=== PATIENT | female | born 1990 ===

== ENCOUNTER 2021-05-02 09:41 | Emergency (ER) | payer SELFPAY ==
--- NOTE | 2021-05-02 10:01 | EDM.PDOC ---
ED HPI GENERAL MEDICAL PROBLEM - General Chief Complaint: Abdominal Pain Stated Complaint: LOWER ABDOMINAL PAIN Time Seen by Provider: 05/02/21 10:01 Source of Information: Reports: Patient, RN, RN Notes Reviewed History Limitations: Reports: No Limitations - History of Present Illness INITIAL COMMENTS - FREE TEXT/NARRATIVE: Pt arrives to ER by ambulance with c/o onset this morning of lower abdominal pain with nausea and vomiting. Denies fever, chills, cough, diarrhea, flank pain or any other symptoms. Pt states she had similar pain once in the past and was found to have a UTI even though she did not have urinary symptoms. Onset: Today Duration: Constant Location: Reports: Abdomen Quality: Reports: Ache Severity: Moderate Improves with: Reports: None Worsens with: Reports: None Associated Symptoms: Reports: No Other Symptoms Middle Abdomen Pain Score (Numeric/FACES): 8 - Related Data Allergies Allergy/AdvReac Type Severity Reaction Status Date / Time codeine Allergy Mild Abdominal Verified 05/02/21 10:11 Cramps pineapple Allergy Cannot Verified 05/02/21 10:11 Remember Home Meds: Home Meds Brexpiprazole [Rexulti] 2 mg PO ASDIRECTED 05/02/21 [History] Desvenlafaxine Succinate [Pristiq ER] 25 mg PO ASDIRECTED 05/02/21 [History] Dextroamphetamine/Amphetamine [Adderall] 30 mg PO DAILY 05/02/21 [History] Fexofenadine/Pseudoephedrine [Ena-D 24 Hour Tablet] 1 tab PO ASDIRECTED 05/02/21 [History] Montelukast [Singulair] 10 mg PO DAILY 05/02/21 [History] atorvaSTATin [Lipitor] 20 mg PO BEDTIME 05/02/21 [History] lamoTRIgine [Lamictal] 200 mg PO DAILY 05/02/21 [History] norethindrone-e.estradioL-iron [Junel Fe 1 MG-20 MCG] 1 each PO ASDIRECTED 05/02/21 [History] Past Medical History Respiratory History: Reports: Asthma Psychiatric History: Reports: Bipolar Endocrine/Metabolic History: Reports: Obesity/BMI 30+ Social & Family History - Family History Family Medical History: No Pertinent Family History - Living Situation & Occupation Living situation: Reports: Single ED ROS GENERAL - Review of Systems Review Of Systems: Comprehensive ROS is negative, except as noted in HPI. ED EXAM, GI/ABD - Physical Exam Exam: See Below Exam Limited By: No Limitations General Appearance: Alert, WD/WN, No Apparent Distress, Obese Eyes: Bilateral: Normal Appearance (No scleral icterus) Nose: Normal Inspection Throat/Mouth: Normal Voice, No Airway Compromise Head: Atraumatic, Normocephalic Neck: Normal Inspection Respiratory/Chest: No Respiratory Distress, Lungs Clear, Normal Breath Sounds, No Accessory Muscle Use, Chest Non-Tender Cardiovascular: Regular Rate, Rhythm, No Edema GI/Abdominal Exam: Normal Bowel Sounds, Soft, No Distention, Tender (periumbilical to suprapubic region). No: Guarding, Rigid, Rebound Back Exam: Normal Inspection. No: CVA Tenderness (L), CVA Tenderness (R) Extremities: Normal Inspection Neurological: Alert, Oriented, No Motor/Sensory Deficits Psychiatric: Normal Mood Skin Exam: Warm, Dry, Intact, Normal Color, No Rash Course - Vital Signs Last Recorded V/S: Last Vital Signs Temp 98 F 05/02/21 10:05 Pulse 96 05/02/21 10:05 Resp 14 05/02/21 10:05 BP 129/90 05/02/21 10:05 Pulse Ox 97 05/02/21 10:05 - Orders/Labs/Meds Orders: Active Orders 24 hr Category Date Time Status Peripheral IV Care [RC] . DIRECTED Care 05/02/21 10:25 Active CULTURE URINE [RM] Stat Lab 05/02/21 09:50 Received Sodium Chloride 0.9% [Saline Flush] Med 05/02/21 10:25 Active 10 ml FLUSH ASDIRECTED PRN metroNIDAZOLE/Normal Saline [Flagyl in NS 500 MG/100 ML Med 05/02/21 11:22 Active ] 500 mg Premix Bag 100 bag IV ONETIME Peripheral IV Insertion Adult [OM.PC] Stat Oth 05/02/21 10:24 Ordered Medication Orders Metronidazole 500 mg/ Premix 100 mls @ 100 mls/hr IV ONETIME ONE Stop: 05/02/21 12:21 Last Admin: 05/02/21 11:33 Dose: 100 mls/hr Documented by: KIMBERLY Sodium Chloride (Sodium Chloride 0.9% 10 Ml Syringe) 10 ml FLUSH ASDIRECTED PRN PRN Reason: Keep Vein Open Last Admin: 05/02/21 10:49 Dose: 10 ml Documented by: KIMBERLY Labs: Laboratory Tests 05/02/21 05/02/21 05/02/21 Range/Units 09:50 09:50 10:36 WBC 6.5 (5.0-10.0) 10^3/uL RBC 3.67 L (4.2-5.4) 10^6/uL Hgb 12.5 (12.0-16.0) g/dL Hct 36.7 L (37.0-47.0) % MCV 100.0 (80-100) fL MCH 34.1 H (27.0-34.0) pg MCHC 34.1 (33.0-35.0) g/dL Plt Count 293 (150-450) 10^3/uL Neut % (Auto) 43.1 (42.2-75.2) % Lymph % (Auto) 45.2 (20.5-50.1) % [place] % (Auto) 8.8 H (2-8) % Eos % (Auto) 2.6 (1.0-3.0) % Baso % (Auto) 0.3 (0.0-1.0) % Sodium (136-145) mmol/L Potassium (3.5-5.1) mmol/L Chloride (98-107) mmol/L Carbon Dioxide (21-32) mmol/L Anion Gap (7-13) mEq/L BUN (7-18) mg/dL Creatinine (0.55-1.02) mg/dL Est Cr Clr Drug Dosing mL/min Estimated GFR (MDRD) BUN/Creatinine Ratio (No establ ref range) Glucose (70-99) mg/dL Calcium (8.5-10.1) mg/dL Total Bilirubin (0.2-1.0) mg/dL AST (15-37) U/L ALT (14-59) U/L Alkaline Phosphatase (46-116) U/L Total Protein (6.4-8.2) g/dL Albumin (3.4-5.0) g/dL Globulin Albumin/Globulin Ratio Amylase (25-115) U/L Lipase (73-393) U/L Urine Color Yellow (YELLOW) Urine Appearance Slightly cloudy (CLEAR) Urine pH 6.0 (5.0-9.0) Ur Specific [place] >= 1.030 (1.005-1.030) Urine Protein Negative (NEGATIVE) Urine Glucose (UA) Negative (NEGATIVE) Urine Ketones Negative (NEGATIVE) Urine Occult Blood Negative (NEGATIVE) Urine Nitrite Negative (NEGATIVE) Urine Bilirubin Negative (NEGATIVE) Urine Urobilinogen 0.2 (0.2-1.0) mg/dL Ur Leukocyte Esterase Trace H (NEGATIVE) Urine RBC 0-5 (0-5) /HPF Urine WBC 5-10 H (0-5/HPF) /HPF Ur Epithelial Cells Many H (NOT SEEN) /HPF Amorphous Sediment Not seen (NOT SEEN) /HPF Urine Bacteria Few (0-FEW/HPF) /HPF Urine Mucus Few H (NOT SEEN) /LPF Urine HCG, Qual Negative 05/02/21 Range/Units 10:36 WBC (5.0-10.0) 10^3/uL RBC (4.2-5.4) 10^6/uL Hgb (12.0-16.0) g/dL Hct (37.0-47.0) % MCV (80-100) fL MCH (27.0-34.0) pg MCHC (33.0-35.0) g/dL Plt Count (150-450) 10^3/uL Neut % (Auto) (42.2-75.2) % Lymph % (Auto) (20.5-50.1) % [place] % (Auto) (2-8) % Eos % (Auto) (1.0-3.0) % Baso % (Auto) (0.0-1.0) % Sodium 138 (136-145) mmol/L Potassium 3.5 (3.5-5.1) mmol/L Chloride 100 (98-107) mmol/L Carbon Dioxide 24 (21-32) mmol/L Anion Gap 17.5 H (7-13) mEq/L BUN 4 L (7-18) mg/dL Creatinine 0.83 (0.55-1.02) mg/dL Est Cr Clr Drug Dosing 91.94 mL/min Estimated GFR (MDRD) > 60 BUN/Creatinine Ratio 4.8 (No establ ref range) Glucose 92 (70-99) mg/dL Calcium 8.7 (8.5-10.1) mg/dL Total Bilirubin 0.5 (0.2-1.0) mg/dL AST 41 H (15-37) U/L ALT 45 (14-59) U/L Alkaline Phosphatase 63 (46-116) U/L Total Protein 7.4 (6.4-8.2) g/dL Albumin 3.4 (3.4-5.0) g/dL Globulin 4.0 Albumin/Globulin Ratio 0.9 Amylase 23 L (25-115) U/L Lipase 64 L (73-393) U/L Urine Color (YELLOW) Urine Appearance (CLEAR) Urine pH (5.0-9.0) Ur Specific [place] (1.005-1.030) Urine Protein (NEGATIVE) Urine Glucose (UA) (NEGATIVE) Urine Ketones (NEGATIVE) Urine Occult Blood (NEGATIVE) Urine Nitrite (NEGATIVE) Urine Bilirubin (NEGATIVE) Urine Urobilinogen (0.2-1.0) mg/dL Ur Leukocyte Esterase (NEGATIVE) Urine RBC (0-5) /HPF Urine WBC (0-5/HPF) /HPF Ur Epithelial Cells (NOT SEEN) /HPF Amorphous Sediment (NOT SEEN) /HPF Urine Bacteria (0-FEW/HPF) /HPF Urine Mucus (NOT SEEN) /LPF Urine HCG, Qual Meds: Medications Generic Name Dose Route Start Last Admin Trade Name Freq PRN Reason Stop Dose Admin Metronidazole 500 mg/ Premix 100 mls @ 100 mls/hr 05/02/21 11:22 05/02/21 11:33 IV 05/02/21 12:21 100 mls/hr ONETIME ONE Administration Sodium Chloride 10 ml 05/02/21 10:05/02/21 10:49 Sodium Chloride 0.9% 10 Ml Syringe FLUSH 10 ml ASDIRECTED PRN Administration Keep Vein Open Discontinued Medications Generic Name Dose Route Start Last Admin Trade Name Freq PRN Reason Stop Dose Admin Sodium Chloride 1,000 mls @ 999 mls/hr 05/02/21 10:25 05/02/21 10:47 Normal Saline IV 05/02/21 11:25 999 mls/hr .BOLUS ONE Administration Ondansetron HCl 4 mg 05/02/21 10:25 05/02/21 10:48 Ondansetron 4 Mg/2 Ml Sdv IV 05/02/21 10:26 4 mg ONETIME ONE Administration Ondansetron HCl 4 mg 05/02/21 11:23 05/02/21 11:33 Ondansetron 4 Mg/2 Ml Sdv IV 05/02/21 11:24 4 mg ONETIME ONE Administration Departure - Departure Time of Disposition: 12:17 Disposition: Home, Self-Care 01 Condition: Good Clinical Impression: Bacterial vaginosis, Dehydration Abdominal pain Qualifiers: Abdominal location: lower abdomen, unspecified Qualified Code(s): R10.30 - Lower abdominal pain, unspecified - Discharge Information *PRESCRIPTION DRUG MONITORING PROGRAM REVIEWED*: Not Applicable *COPY OF PRESCRIPTION DRUG MONITORING REPORT IN PATIENT OBI: Not Applicable Instructions: Bacterial Vaginosis, [id number], Abdominal Pain, Adult, [id number] Forms: ED Department Discharge Additional Instructions: Rx: Flagyl (Metronidazole) 500mg *Do not drink alcohol while taking this medication. Rx: Zofran 4mg Follow up in clinic as scheduled. Ask your doctor to recheck your urine at your clinic visit. If abdominal pain with nausea returns, ask your doctor about further gallbladder evaluation. Sepsis Event Note (ED) - Focused Exam Vital Signs: Vital Signs Temp Pulse Resp BP Pulse Ox 05/02/21 10:05 98 F 96 14 129/90 97 - My Orders Last 24 Hours: My Active Orders 05/02/21 09:50 CULTURE URINE [RM] Stat 05/02/21 10:24 Peripheral IV Insertion Adult [OM.PC] Stat 05/02/21 10:25 Peripheral IV Care [RC] . DIRECTED Sodium Chloride 0.9% [Saline Flush] 10 ml FLUSH ASDIRECTED PRN 05/02/21 11:22 metroNIDAZOLE/Normal Saline [Flagyl in NS 500 MG/100 ML] 500 mg Premix Bag 100 bag IV ONETIME - Assessment/Plan Last 24 Hours: My Active Orders 05/02/21 09:50 CULTURE URINE [RM] Stat 05/02/21 10:24 Peripheral IV Insertion Adult [OM.PC] Stat 05/02/21 10:25 Peripheral IV Care [RC] . DIRECTED Sodium Chloride 0.9% [Saline Flush] 10 ml FLUSH ASDIRECTED PRN 05/02/21 11:22 metroNIDAZOLE/Normal Saline [Flagyl in NS 500 MG/100 ML] 500 mg Premix Bag 100 bag IV ONETIME
[2021-05-02] MEDS ORDERED: Sodium Chloride 0.9% 10 ML Syringe FLUSH PRN (10:25)
[2021-05-02] MEDS ORDERED: Sodium Chloride 0.9% 1,000 ML IV ONE (10:25)
[2021-05-02] MEDS ORDERED: Ondansetron 4 MG/2 ML SDV IV ONE ×2 (10:25→11:23)
[2021-05-02 11:06] LABS: ANION GAP 17.5 mEq/L (7-13); CHLORIDE,CL 100 mmol/L (98-107); SODIUM,NA 138 mmol/L (136-145)
[2021-05-02] MEDS ORDERED: metroNIDAZOLE/Normal Saline 500 MG in Premix Bag 100 BAG IV ONE (11:22)
== END 2021-05-02 12:48 | disposition home or self-care (01) ==
LOC: DL.ED 09:41
DX: N76.0 Acute vaginitis (principal); B96.89 Other specified bacterial agents as the cause of diseases classified elsewhere; E86.0 Dehydration; E66.9 Obesity, unspecified; Z68.42 Body mass index [BMI] 45.0-49.9, adult; Z88.5 Allergy status to narcotic agent; Z91.018 Allergy to other foods; Z79.899 Other long term (current) drug therapy
CPT/HCPCS: 36415; 80053; 81001; 81025; 82150; 83690; 85025; 87086; 96365; 96375; 96376; 99284; J2405; J3490; J7030